=== PATIENT | male | born 1995 | race Two or more races ===

== ENCOUNTER 2017-04-03 17:55 | Emergency (ER) | payer SELFPAY ==
[~2017-04-03] VITALS: Ht 165.1 cm; Wt 59.0 kg
[2017-04-03] MEDS ORDERED: KETOROLAC 30 MG/1 ML IM ONE (19:00)
[2017-04-03 20:23] VITALS: BP 105/53
== END 2017-04-03 20:25 | disposition home or self-care (01) ==
LOC: ED 20:19
DX: L72.0 Epidermal cyst (principal)
CPT/HCPCS: 76870; 99284

== ENCOUNTER 2017-04-24 20:34 | Emergency (ER) | payer SELFPAY ==
[~2017-04-24] VITALS: Ht 160 cm; Wt 59.5 kg
[2017-04-24 20:36] VITALS: BP 138/80
[2017-04-24] MEDS ORDERED: KETOROLAC 30 MG/1 ML ONE (21:16)
[2017-04-24] MEDS ORDERED: ONDANSETRON 2MG/ML, 2ML ONE (21:16)
[2017-04-24] MEDS ORDERED: ONDANSETRON 2MG/ML, 2ML IVPush ONE (21:30)
[2017-04-24] MEDS ORDERED: SODIUM CHLORIDE FLUSH 10ML SYR IVF ONE (21:30)
[2017-04-24] MEDS ORDERED: KETOROLAC 30 MG/1 ML IVPush ONE (21:30)
[2017-04-24 21:38] LABS: BASOPHILS # (AUTO) 0.04 x10^3/uL (0-0.1); BASOPHILS % (AUTO) 1 % (0-1); EOSINOPHILS # (AUTO) 0.04 x10^3/uL (0-0.4); EOSINOPHILS % (AUTO) 1 % (1-7); LYMPHOCYTES # (AUTO) 2.35 x10^3/uL (1-3.4); LYMPHOCYTES % (AUTO) 40 % (22-44); MD NO; MEAN CORPUSCULAR HEMOGLOBIN 29.1 pg (27.5-34.5); MEAN CORPUSCULAR HGB CONC 33.5 g/dL (33.2-36.2); MEAN PLATELET VOLUME 7.9 fL (7.4-10.4); MONOCYTES # (AUTO) 0.48 x10^3/uL (0.2-0.8); MONOCYTES % (AUTO) 8 % (2-9); NEUTROPHILS # (AUTO) 2.96 x10^3/uL (1.8-6.8); NEUTROPHILS % (AUTO) 50 % (42-75); PLATELET COUNT 289 x10^3/uL (130-400); RED CELL DISTRIBUTION WIDTH 13.4 % (9.4-14.8)
[2017-04-24 21:49] LABS: ALBUMIN 4.3 g/dL (3.4-5.0); ANION GAP 7 mmol/L (5-15); CALCIUM 9.1 mg/dL (8.5-10.1); CHLORIDE 108 mmol/L (98-107); CREATININE 1.07 mg/dL (0.7-1.3)
[2017-04-24] MEDS ORDERED: OMNIPAQUE 350 MG/ML, 100ML BOTTLE ONE (23:51)
== END 2017-04-24 23:20 | disposition home or self-care (01) ==
LOC: ED 21:53
DX: R10.32 Left lower quadrant pain (principal); N50.819 Testicular pain, unspecified; G89.29 Other chronic pain; Z90.49 Acquired absence of other specified parts of digestive tract
CPT/HCPCS: 36415; 74177; 76870; 80048; 82040; 85025; 96374; 96375; 99285; J1885; J2405; Q9967